=== PATIENT | female | born 1990 | race Caucasian/White ===

== ENCOUNTER 2021-07-02 07:05 | Emergency (ER) | payer SELFPAY ==
[~2021-07-02 07:05] MED LIST: FLEXERIL5 MG PO; MOBIC15 MG PO
[2021-07-02] MEDS ORDERED: BACTRIM DS TAB1 EACH PO (08:47)
== END 2021-07-02 08:54 | disposition home or self-care (01) ==
LOC: FER 07:05
DX: L72.8 Other follicular cysts of the skin and subcutaneous tissue (principal); J45.909 Unspecified asthma, uncomplicated; F17.200 Nicotine dependence, unspecified, uncomplicated; Z88.6 Allergy status to analgesic agent
CPT/HCPCS: 99283